=== PATIENT | female | born 1990 | race African-American/Black ===

== ENCOUNTER 2024-12-23 16:54 | Emergency (ER) | payer MEDICAID ==
[~2024-12-23] VITALS: Ht 165.1 cm; Wt 59.0 kg
[2024-12-23 16:55] VITALS: O2SAT 98
[2024-12-23] MEDS ORDERED: LORAZEPAM 2MG/ML INJ IM ONE (17:00)
[2024-12-23] MEDS: LORAZEPAM 2MG/ML UD SYRINGE IM SCH (17:15)
[2024-12-23] MEDS: ZIPRASIDONE MESYLATE 20MG/VIAL IM STA (17:23)
[2024-12-23] MEDS: DIPHENHYDRAMINE 50MG/ML VIAL IM ONE (17:23)
[2024-12-23] MEDS: HALOPERIDOL LACTATE 5MG/ML VIAL IM ONE (17:23)
[2024-12-23 17:49] LABS: BASOPHILS % 0.7 % (0.0-2.0); EOSINOPHILS % 0.2 % (0.0-5.0); HEMOGLOBIN. 12.4 g/dL (12.0-16.0); LYMPHOCYTES % 29.9 % (20.0-50.0); MEAN CORPUSCULAR HEMOGLOBIN 28.1 pg (28.0-32.0); MEAN CORPUSCULAR HGB CONC 32.5 g/dL (31.0-37.0); MEAN CORPUSCULAR VOLUME 86.3 fL (81.0-99.0); MEAN PLATELET VOLUME 8.5 fl (7.4-10.4); MONOCYTES % 3.1 % (2.0-8.0); NEUTROPHILS % 66.1 % (40.0-76.0); PLATELET 246 x1000/uL (130-400); RED BLOOD CELL COUNT 4.41 mill/uL (4.2-5.4); RED CELL DISTRIBUTION WIDTH 14.1 % (11.6-14.6); WHITE BLOOD COUNT 6.1 x1000/uL (4.5-11.0)
[2024-12-23 17:54] LABS: CLARITY URINE CLEAR (CLEAR); COLOR URINE YELLOW (YELLOW); GLUCOSE URINE NEGATIVE (NEGATIVE); KETONES URINE NEGATIVE (NEGATIVE); LEUKOCYTE ESTERASE URINE NEGATIVE (NEGATIVE); NITRITE URINE NEGATIVE (NEGATIVE); OCCULT BLOOD URINE NEGATIVE (NEGATIVE); PH URINE 6.5 (4.5-8.0); PROTEIN URINE NEGATIVE (NEGATIVE); SPECIFIC GRAVITY URINE 1.003 (1.005-1.030); UROBILINOGEN URINE 0.2 E.U./dL (0.2-1.0)
[2024-12-23 18:00] LABS: CALCIUM 9.1 mg/dL (8.7-10.4); CARBON DIOXIDE 22 mEq/L (21-32); CHLORIDE 109 mEq/L (98-107); POTASSIUM 3.9 mEq/L (3.5-5.1); SODIUM 142 mEq/L (136-145)
[2024-12-23 18:06] LABS: CREATININE 0.8 mg/dL (0.6-1.0); ETHANOL BLOOD 168 mg/dL (<10); GLUCOSE 113 mg/dL (70-105); UREA NITROGEN BLOOD < 5 mg/dL (9-23)
[2024-12-23 18:10] LABS: HCG SCREEN NEGATIVE
[2024-12-23 18:55] LABS: *AMPHETAMINES SCREEN URINE NEGATIVE (NEGATIVE); *BARBITURATES SCREEN URINE NEGATIVE (NEGATIVE); *BENZODIAZEPINES SCREEN URINE NEGATIVE (NEGATIVE); *COCAINE SCREEN URINE NEGATIVE (NEGATIVE); CANNABINOID URINE SCREEN PRESUMPTIVE POSITIVE (NEGATIVE); ECSTASY MDMA SCREEN URINE NEGATIVE (NEGATIVE); METHADONE URINE SCREEN NEGATIVE (NEGATIVE); OPIATES URINE SCREEN NEGATIVE (NEGATIVE); PHENCYCLIDINE URINE SCREEN NEGATIVE (NEGATIVE)
[2024-12-24] MEDS: TRAZODONE HCL 50MG TABLET PO SCH (01:47)
[2024-12-24] MEDS: HYDROXYZINE 25MG TABLET PO ONE (02:28)
[2024-12-24] MEDS: OLANZAPINE 5MG TABLET ODT PO SCH (11:30)
[2024-12-24 18:15] VITALS: BP 122/73; PULSE 78; RESP 16; TEMP 36.8; O2SAT 99
[2024-12-24] MEDS ORDERED: TRAZODONE HCL 50MG TABLET PO SCH (21:00)
== END 2024-12-24 19:04 | disposition still patient (30) ==
LOC: ER 16:54
DX: F28 Other psychotic disorder not due to a substance or known physiological condition (principal); F31.9 Bipolar disorder, unspecified; F20.9 Schizophrenia, unspecified; F12.90 Cannabis use, unspecified, uncomplicated; F15.90 Other stimulant use, unspecified, uncomplicated; Z79.899 Other long term (current) drug therapy; Z20.822 Contact with and (suspected) exposure to COVID-19
CPT/HCPCS: 80305; 80048; 81003; 80307; 80329; 80320 ×2; 84703; 85025; 36415 ×2; 96372; 99285; 87426; J1200; J1630; J2060; Z7610; G0480